=== PATIENT | female | born 1955 | race Caucasian/White ===

== ENCOUNTER 2021-08-31 01:45 | Day surgery (SDC) | payer OTHER, SELFPAY ==
[2021-08-11 13:49] VITALS: BMI 39.8
--- NOTE | 2021-08-30 15:37 | P.PNAN_ITS ---
Anes - Initial Pre Proc Eval Procedure: Operation Date: 08/31/21 08:00 Proposed Procedures p Esophagogastroduodenoscopy & Colonoscopy - Vlad Alexander MD Date/Time: 08/30/21 15:37 Surgeon: Vlad Alexander MD Pre Op Diagnosis: TAMIKA Patient Data Age: 66 Gender: F Height: 1.6 m Weight: 102 kg Allergies Allergy/AdvReac Type Severity Reaction Status Date / Time strawberry Allergy Rash Verified 08/31/21 06:41 Home Medications Medication Instructions Recorded Confirmed Type aspirin 81 mg tablet,delayed 81 mg PO DAILY 07/20/21 08/31/21 History release levothyroxine 175 mcg tablet 175 mcg PO DAILY 07/20/21 08/31/21 History (Synthroid) sertraline 100 mg tablet 150 mg PO DAILY 07/20/21 08/31/21 History zolpidem 5 mg tablet (Ambien) 5 mg PO QHS 07/20/21 08/31/21 History ferrous sulfate 325 mg (65 mg 325 tablet PO DAILY 08/11/21 08/31/21 History iron) tablet (FeroSul) Patient hx anesthesia problems: none Family hx anesthesia problems: none Results Review: All pre-operative results and documents have been reviewed as part of the pre- operative evaluation. PMFSH Past Medical History Medical History (Updated 08/30/21 @ 15:38 by Jeremy Mishra DO) Depression Hypothyroidism Obese Surgical History Surgical History (Updated 07/20/21 @ 09:54 by Triny Arevalo MA) H/O: hysterectomy Social History Social History (Updated 07/20/21 @ 09:56 by Triny Arevalo MA) Smoking packs per day: 2 Smoking cigarettes per day: 40.0 Years smoked: 40 Smoking pack-years: 80.00 Smoking status: Former smoker Tobacco type: cigarettes Second hand tobacco smoke exposure: Yes Alcohol intake: never Alcohol use details: social Substance use: never Living arrangements: alone Spiritual care concerns: No Anes - Eval Final PreProcedure Day of Procedure 08/30/21 15:37 Patient weight: obese Heart: regular rate and rhythm Lungs: clear to auscultation Airway: Mallampati scale class II Neurological: alert and oriented Last oral intake: >/= 8 hours ASA classification: III Emergent: no Anesthetic plan: proceed Anesthesia type and monitoring: general GIVS and standard monitoring Results Review: All pre-operative results and documents have been reviewed as part of the pre- operative evaluation. Informed Consent: The patient's anesthetic plan and its attendant risks and benefits were discuss ed with the patient/family/POA. Questions were solicited and answers provided to the satisfaction of the patient/family/POA.
[2021-08-31 06:43] VITALS: BP 139/76; PULSE 84; RESP 18; TEMP 36.2; O2SAT 98
[2021-08-31] MEDS: LACTATED RINGERS 1,000 ML 150 ML IV CONT (06:54)
--- NOTE | 2021-08-31 07:14 | PM.IMHP ---
H&P: HPI History of Present Illness Date/Time: 08/31/21 07:14 Chief Complaint: Iron deficiency anemia. Narrative: This is a 66-year-old white female patient was found to have iron deficiency anemia on blood testing after complaints of fatigue. She denies any obvious blood in her stool. She reports her weight appetite bowel movements are normal. Patient reports previous colonoscopy 9 or 10 years ago was unremarkable. Many years ago had anemia felt to be secondary to menstrual blood loss. She has subsequently had a hysterectomy. Family history is significant for bladder cancer in 2 sisters. Patient reports that her own weight appetite bowel movements are normal. She has no and no indication of bleeding. No bruising or nose bleeds. Patient presents today for GI endoscopy to evaluate more thoroughly. Review of Systems Review of Systems: review of systems noncontributory. [facility] Past Medical History Medical History (Updated 08/31/21 @ 07:16 by Vlad Alexander MD) Depression Hypothyroidism Obese Surgical History Surgical History (Updated 07/20/21 @ 09:54 by Triny Arevalo MA) H/O: hysterectomy Social History Social History (Updated 07/20/21 @ 09:56 by Triny Arevalo MA) Smoking packs per day: 2 Smoking cigarettes per day: 40.0 Years smoked: 40 Smoking pack-years: 80.00 Smoking status: Former smoker Tobacco type: cigarettes Second hand tobacco smoke exposure: Yes Alcohol intake: never Alcohol use details: social Substance use: never Living arrangements: alone Spiritual care concerns: No Meds Home Medications and Allergies Home Medications Medication Instructions Recorded Confirmed Type aspirin 81 mg tablet,delayed 81 mg PO DAILY 07/20/21 08/31/21 History release levothyroxine 175 mcg tablet 175 mcg PO DAILY 07/20/21 08/31/21 History (Synthroid) sertraline 100 mg tablet 150 mg PO DAILY 07/20/21 08/31/21 History zolpidem 5 mg tablet (Ambien) 5 mg PO QHS 07/20/21 08/31/21 History ferrous sulfate 325 mg (65 mg 325 tablet PO DAILY 08/11/21 08/31/21 History iron) tablet (FeroSul) Allergies Allergy/AdvReac Type Severity Reaction Status Date / Time strawberry Allergy Rash Verified 08/31/21 06:41 Vital Signs Vital Signs - 24 hr 08/31/21 06:43 Temperature 97.1 F L Pulse Rate 84 Respiratory Rate 18 Blood Pressure 139/76 Pulse Oximetry 98 Oxygen Delivery Room Air Exam Narrative: Physical exam reveals patient to be alert. Vital signs stable. HEENT exam is unremarkable. Patient is anicteric. Lungs are clear to auscultation and percussion. Heart is without murmur or extra sounds. Abdominal exam bowel sounds are present soft nontender with no organomegaly. Digital external rectal exam is normal. Assessment and Plan Assessment and plan (1) TAMIKA (iron deficiency anemia): Code(s): D50.9 - Iron deficiency anemia, unspecified Status: Acute Assessment and Plan: Patient diagnosed with iron deficiency anemia. These labs are not available for immediate review. Patient has been on supplemental oral iron replacement. Plan for colonoscopy EGD and small-bowel series if necessary subsequently. Iron studies and CBC or requested if at all possible from primary care service.
[2021-08-31] MEDS: EPINEPHrine INJ 1 MG/10 ML SYRINGE XX (08:26)
--- NOTE | 2021-08-31 08:44 | SUR.OPER ---
EGD ENDED AT 08, COLON BEGAN AT 0832.
[2021-08-31 08:48] VITALS: BP 118/74; PULSE 85; RESP 14; O2SAT 99
[2021-08-31 08:58] VITALS: BP 131/69; PULSE 82; RESP 23; O2SAT 98
[2021-08-31 09:08] VITALS: BP 124/67; PULSE 84; RESP 22; O2SAT 99
[2021-08-31 09:13] LABS: Hematocrit 38.2 % (37.0-47.0); Hemoglobin 12.2 g/dL (12.0-15.0); Mean Corpuscular HGB Conc 31.9 g/dl (32-36); Mean Corpuscular Hemoglobin 27.5 pg (26-34); Mean Platelet Volume 8.8 fl (7.4-10.4); Platelet Count Result 227 k/mm3 (150-375); Red Blood Count 4.44 M/mm3 (4.2-5.4); Red Cell Distribution Width 14.9 % (11.5-14.5); White Blood Count 4.7 K/mm3 (4.5-10.0)
== END 2021-08-31 09:16 | disposition home or self-care (01) ==
PROVIDERS: Visit Provider Internal Medicine Gastroenterology
PROC: 0DJ08ZZ Inspection of Upper Intestinal Tract, Via Natural or Artificial Opening Endoscopic (ICD-10-PCS; CPT 43235; principal; 2021-08-31 08:00)
DX: D50.9 Iron deficiency anemia, unspecified (principal); K31.7 Polyp of stomach and duodenum; K31.A0 Gastric intestinal metaplasia, unspecified; E03.9 Hypothyroidism, unspecified; F32.A Depression, unspecified; Z79.82 Long term (current) use of aspirin; Z87.891 Personal history of nicotine dependence; E66.9 Obesity, unspecified; Z68.38 Body mass index [BMI] 38.0-38.9, adult
CPT/HCPCS: 43251; 43236; 45378; 36415; 85027; 88305; J0171; J2704; J7120